=== PATIENT | female | born 1950 | race Caucasian/White ===

== ENCOUNTER → 2020-09-08 | Outpatient (CLI) | payer MEDICARE, OTHER ==
[~2020-09-08] MED LIST: MACROBID 100 M100 MG PO
== END ==
LOC: US 13:00
DX: M79.604 Pain in right leg (principal); M25.561 Pain in right knee; M85.851 Other specified disorders of bone density and structure, right thigh
CPT/HCPCS: 73564; 93971

== ENCOUNTER → 2020-09-20 | Outpatient (CLI) | payer MEDICARE, OTHER | LOC: MRI 09-19 08:45 | DX: M79.604 Pain in right leg (principal); M25.461 Effusion, right knee | CPT/HCPCS: 73723; A9577 ==

== ENCOUNTER → 2021-09-13 | Outpatient (CLI) | payer MEDICARE, OTHER | LOC: EXRD 10:30 | DX: I73.9 Peripheral vascular disease, unspecified (principal) | CPT/HCPCS: 93925 ==